=== PATIENT | male | born 1950 | race Caucasian/White ===

== ENCOUNTER → 2017-03-28 | Outpatient (CLI) | payer SELFPAY | LOC: M OUTALCOH 10:34 | PROVIDERS: ATTEND Psychiatry & Neurology Psychiatry | DX: F10.20 Alcohol dependence, uncomplicated (principal) ==

== ENCOUNTER 2017-04-05 13:54 | Outpatient (RCR) | payer SELFPAY | END 2017-04-21 | LOC: M OUTALCOH 13:54 | PROVIDERS: ATTEND Psychiatry & Neurology Psychiatry | DX: F12.10 Cannabis abuse, uncomplicated (principal); F10.10 Alcohol abuse, uncomplicated ==

== ENCOUNTER 2019-04-01 15:23 | Emergency (ER) | payer OTHER, SELFPAY ==
[~2019-04-01] VITALS: Ht 180.3 cm; Wt 72.7 kg
--- NOTE | 2019-04-01 18:21 | REP ---
REASON: Pain after trauma. PRIORS: None. The bones are demineralized. Mild degenerative changes are seen throughout the foot. There is no evidence of an acute fracture. IMPRESSION:Chronic changes. Electronically Signed by Marcelo Costa DO 04/02/2019 11:19 A
[2019-04-01] MEDS ORDERED: HEAL1TAB PO (21:35)
[2019-04-01] MEDS ORDERED: ATOR1TAB19 PO (21:35)
[2019-04-01] MEDS ORDERED: ONE-TAB PO (21:35)
[2019-04-01] MEDS ORDERED: ATEN25TA PO (21:35)
[2019-04-01] MEDS ORDERED: ASPI81TA85 PO (21:35)
[2019-04-01] MEDS ORDERED: NAPR-885 PO (21:35)
[2019-04-01] MEDS ORDERED: NIFE30TA50 PO (21:35)
[2019-04-01 21:44] VITALS: BP 145/65
--- NOTE | 2019-04-02 08:42 | REP ---
Right ankle series: Four views. History: Right ankle swelling. Findings: There is mild diffuse osteopenia. There is diffuse medial lateral and anterior soft tissue swelling. There is soft tissue swelling obscuring the borders of the Achilles tendon as well. Some vascular calcification is noted. Ankle mortise is intact. No fracture is visible. Impression: Diffuse soft tissue swelling. No fracture seen. Question Achilles tendon injury. Clinical correlation suggested. Vascular calcification is seen. Diffuse osteopenia. Electronically Signed by Romeo Jaramillo MD 04/02/2019 09:45 A
== END 2019-04-01 21:51 | disposition home or self-care (01) ==
LOC: M ED 15:23
DX: M25.472 Effusion, left ankle (principal); M19.072 Primary osteoarthritis, left ankle and foot; I10 Essential (primary) hypertension; Z79.899 Other long term (current) drug therapy; Z79.82 Long term (current) use of aspirin; Z87.891 Personal history of nicotine dependence

== ENCOUNTER 2019-05-22 07:39 | Day surgery (SDC) | payer OTHER ==
[~2019-05-22] VITALS: Ht 179.1 cm; Wt 66.9 kg
[~2019-05-22 07:39] MED LIST: ALBU8.5H IH; ASPI81TA85 PO; ATEN25TA PO; ATOR1TAB19 PO; CALC1TAB26 PO; CYAN100050 PO; FOLI800C PO; HEAL1TAB PO; NAPR-885 PO; NIFE30TA50 PO; NS 1,000 ML IV ONE; ONE-TAB PO; VITA50TA43 PO
[2019-05-22] MEDS ORDERED: PROPOFOL 200 MG/20 ML VIAL As Ordered ONE (07:53)
[2019-05-22] MEDS ORDERED: LIDOCAINE 2% INJ 100 MG/5 ML SDV (FOR ANES.) As Ordered ONE ×2 (07:53→07:54)
--- NOTE | 2019-05-22 08:50 | ROOR ---
Patient Name: Mauro Hagen Procedure Date: 05/22/2019 8:24 AM Date of : 1950 Age: 68 Room: [facility] Gender: Male Note Status: Finalized Procedure: Total Colonoscopy to Cecum + Cold Snare Polypectomy + Hemoclips Indications: Screening in patient at increased risk: Colorectal cancer in brother 60 or older Providers: Flo Cid MD Referring MD: Laurent Martinez Md Requesting Provider: Medicines: Monitored Anesthesia Care Complications: No immediate complications. Procedure: Pre-Anesthesia Assessment: - The heart rate, respiratory rate, oxygen saturations, blood pressure, adequacy of pulmonary ventilation, and response to care were monitored throughout the procedure. The Colonoscope was introduced through the anus and advanced to the cecum, identified by appendiceal orifice and ileocecal valve. The colonoscopy was performed without difficulty. The patient tolerated the procedure well. The quality of the bowel preparation was excellent. Findings: The perianal and digital rectal examinations were normal. Non-bleeding internal hemorrhoids were found during retroflexion. The hemorrhoids were small and Grade I (internal hemorrhoids that do not prolapse). A small polyp was found in the rectum. The polyp was sessile. The polyp was removed with a cold snare. Resection and retrieval were complete. To prevent bleeding after the polypectomy, one hemostatic clip was successfully placed (MR conditional). There was no bleeding at the end of the procedure. The exam was otherwise without abnormality on direct and retroflexion views. Scattered small-mouthed diverticula were found in the recto-sigmoid colon, sigmoid colon and descending colon. Impression: - Non-bleeding internal hemorrhoids. - One small polyp in the rectum, removed with a cold snare. Resected and retrieved. Clip (MR conditional) was placed. - The examination was otherwise normal on direct and retroflexion views. - Diverticulosis in the recto-sigmoid colon, in the sigmoid colon and in the descending colon. - The exam was otherwise normal to the cecum. Recommendation: - Patient has a contact number available for emergencies. The signs and symptoms of potential delayed complications were discussed with the patient. Return to normal activities tomorrow. Written discharge instructions were provided to the patient. - High fiber diet. - Discharge patient to home. - Continue present medications. - Await pathology results. - Telephone GI clinic for pathology results in 1 week. - Repeat colonoscopy in 5 years for surveillance based on pathology results. - Return to referring physician. - The findings and recommendations were discussed with the patient's family. Flo Cid MD Flo Cid MD 05/22/2019 8:50:19 AM Electronically signed by Flo Cid MD Number of Addenda: 0 Note Initiated On: 05/22/2019 8:24 AM Estimated Blood Loss: Estimated blood loss: none.
[2019-05-22 09:21] VITALS: BP 180/82
== END 2019-05-22 09:22 | disposition home or self-care (01) ==
LOC: M OPP 07:39
PROVIDERS: ATTEND Internal Medicine Gastroenterology
DX: Z12.11 Encounter for screening for malignant neoplasm of colon (principal); Z80.0 Family history of malignant neoplasm of digestive organs; K64.0 First degree hemorrhoids; K62.1 Rectal polyp; K57.30 Diverticulosis of large intestine without perforation or abscess without bleeding; I25.10 Atherosclerotic heart disease of native coronary artery without angina pectoris; I25.2 Old myocardial infarction; I10 Essential (primary) hypertension; E78.5 Hyperlipidemia, unspecified; M19.90 Unspecified osteoarthritis, unspecified site; J44.9 Chronic obstructive pulmonary disease, unspecified; Z87.891 Personal history of nicotine dependence; F12.10 Cannabis abuse, uncomplicated; Z88.1 Allergy status to other antibiotic agents; Z79.82 Long term (current) use of aspirin; Z79.899 Other long term (current) drug therapy

== ENCOUNTER 2024-11-20 18:15 | Inpatient (IN) | payer OTHER ==
[~2024-11-20] VITALS: Ht 180.3 cm; Wt 70.5 kg
[~2024-11-20 18:15] MED LIST changes: -ASPI81TA85 PO; +ASPI81TA86 PO; +CYAN-1 PO; -CYAN100050 PO; +NIFE-3 PO; -NIFE30TA50 PO; -NS 1,000 ML IV ONE
[2024-11-20 19:07] LABS: BASO # 0.1 10^3/uL (0.0-0.2); BASO % 0.7 % (0.0-1.0); EOS # 0.1 10^3/uL (0.0-0.5); HEMATOCRIT 35.7 % (42.0-52.0); HEMOGLOBIN 12.3 g/dl (13.5-17.5); LYMPH % 42.6 % (24.0-44.0); MEAN CORPUSCULAR HEMOGLOBIN 29.1 pg (27.0-33.0); MEAN CORPUSCULAR HGB CONC 34.5 g/dl (32.0-36.5); MEAN CORPUSCULAR VOLUME 84.4 fl (80.0-96.0); MONO # 1.1 10^3/uL (0.0-0.8); NEUTROPHILS # 2.9 10^3/uL (1.5-8.5); NEUTROPHILS % 40.6 % (36.0-66.0); PLATELET COUNT, AUTOMATED 322 10^3/uL (150-450); RED BLOOD COUNT 4.23 10^6/uL (4.30-6.10)
[2024-11-20 19:13] LABS: BLOOD UREA NITROGEN 8 MG/DL (9-23); CALCIUM LEVEL 8.4 MG/DL (8.3-10.6); CARBON DIOXIDE LEVEL 22 MMOL/L (20-31); CHLORIDE LEVEL 92 MMOL/L (98-107); GLOMERULAR FILTRATION RATE > 60.0 (>42); GLUCOSE, FASTING 83 MG/DL (74-106); POTASSIUM SERUM 4.1 MMOL/L (3.5-5.1); SODIUM LEVEL 130 MMOL/L (136-145)
[2024-11-20 19:19] LABS: INR 0.91; PARTIAL THROMBOPLASTIN TIME 37.6 SECONDS (24.8-34.2); PROTHROMBIN TIME 12.6 SECONDS (12.5-14.5)
[2024-11-20] MEDS: MORPHINE 4 MG/ML 1ML VIAL IV ONE ×3 (19:37→21:10)
[2024-11-20] MEDS: THIAMINE 100 MG TAB PO SCH (21:00)
[2024-11-20] MEDS: ONDANSETRON 4MG 2ML VIAL IV ONE (22:26)
[2024-11-20] MEDS ORDERED: MOM 30ML SUSPENSION UDC PO PRN (23:10)
[2024-11-20] MEDS ORDERED: LORazepam 2 MG TAB PO PRN (23:25)
[2024-11-21] MEDS ORDERED: ASPI81TA26 PO (00:06)
[2024-11-21] MEDS ORDERED: FAMO40TA3 PO (00:06)
[2024-11-21] MEDS ORDERED: XALA0.007 OU (00:06)
[2024-11-21] MEDS ORDERED: THERTAB52 PO (00:06)
[2024-11-21] MEDS ORDERED: VITA100T29 PO (00:06)
[2024-11-21] MEDS ORDERED: CALCCAP PO (00:06)
[2024-11-21] MEDS ORDERED: ATOR40TA75 PO (00:06)
[2024-11-21] MEDS ORDERED: HOME MED LIST COMPLETE! XX SCH (00:10)
[2024-11-21 00:19] VITALS: BP 156/73; TEMP 97.2; O2SAT 93
[2024-11-21 00:21] VITALS: BP 156/73
[2024-11-21] MEDS: NS (Normal Saline) 0.9% 1,000 ML IV SCH (00:26)
[2024-11-21] MEDS: PROMETHAZINE 25MG/ML 1ML VIAL IV PRN (00:38)
[2024-11-21] MEDS ORDERED: VENTAER INH (03:10)
[2024-11-21] MEDS ORDERED: OMEP-406 PO (03:10)
[2024-11-21] MEDS ORDERED: ATOR80TA59 PO (03:10)
[2024-11-21] MEDS: MORPHINE 2 MG/ML 1ML VIAL IV PRN (04:14)
[2024-11-21 04:22] VITALS: BP 156/74; TEMP 97.5; O2SAT 92
[2024-11-21] MEDS: METHOCARBAMOL 1,000 MG/10 ML VIAL IV ONE (04:54)
[2024-11-21] MEDS: ACETAMINOPHEN *IV* 1,000 MG in IV 1 EA IV ONE (05:02)
[2024-11-21] MEDS: HEPARIN SOD (PORCINE) 5000UNITS/ML 1ML VIAL/SYRINGE SC SCH (05:11)
[2024-11-21] MEDS ORDERED: NALOXONE INJ 0.4MG/1ML VIAL IV PRN (05:15)
[2024-11-21] MEDS: HYDROMORPHONE HCL 0.5 MG/ 0.5 ML SYRINGE IV ONE (05:25)
[2024-11-21 06:11] LABS: HEMATOCRIT 33.9 % (42.0-52.0); HEMOGLOBIN 11.4 g/dl (13.5-17.5); MEAN CORPUSCULAR HEMOGLOBIN 28.8 pg (27.0-33.0); MEAN CORPUSCULAR HGB CONC 33.6 g/dl (32.0-36.5); MEAN CORPUSCULAR VOLUME 85.6 fl (80.0-96.0); PLATELET COUNT, AUTOMATED 304 10^3/uL (150-450); RED BLOOD COUNT 3.96 10^6/uL (4.30-6.10)
[2024-11-21 06:41] LABS: ALBUMIN 3.3 G/DL (3.2-5.2); ALKALINE PHOSPHATASE 106 U/L (40-129); ALT/SGPT 23 U/L (7.0-40); AST/SGOT 39 U/L (<34); BILIRUBIN,TOTAL 0.4 MG/DL (0.3-1.2); BLOOD UREA NITROGEN 7 MG/DL (9-23); CALCIUM LEVEL 8.2 MG/DL (8.3-10.6); CARBON DIOXIDE LEVEL 25 MMOL/L (20-31); CHLORIDE LEVEL 94 MMOL/L (98-107); CREATININE FOR GFR 0.62 MG/DL (0.70-1.30); GLOMERULAR FILTRATION RATE > 60.0 (>42); GLUCOSE, FASTING 90 MG/DL (74-106); POTASSIUM SERUM 4.2 MMOL/L (3.5-5.1); SODIUM LEVEL 129 MMOL/L (136-145)
[2024-11-21] MEDS: DOCUSATE SODIUM 100MG CAPSULE PO SCH (09:00)
[2024-11-21] MEDS: NIFEdipine 30MG XL TAB PO SCH (10:12)
[2024-11-21] MEDS: ATORVASTATIN 20 MG TAB PO SCH (10:12)
[2024-11-21] MEDS: ASPIRIN 81MG ENTERIC TABLET PO SCH (10:12)
[2024-11-21] MEDS: MULTIVITAMINS/MINERALS THERAP 1 TAB PO SCH (10:13)
[2024-11-21] MEDS: atenoloL 25 MG TAB PO SCH (10:13)
[2024-11-21] MEDS: FOLIC ACID 1MG TAB PO SCH (10:13)
[2024-11-21 12:00] VITALS: BP 128/63; TEMP 97.3; O2SAT 92
[2024-11-21] MEDS: ALBUTEROL 90 MCG/ACT 8GM HFA INHALER INH PRN (16:55)
[2024-11-21 19:51] VITALS: BP 155/75; TEMP 98.8; O2SAT 88
[2024-11-21 20:00] VITALS: BP 155/75
[2024-11-21] MEDS: FAMOTIDINE 20 MG TAB PO SCH (20:35)
[2024-11-21] MEDS: SODIUM BICARBONATE 325 MG TAB PO SCH (20:35)
[2024-11-22 04:41] VITALS: BP 121/86; TEMP 97.5; O2SAT 86
[2024-11-22 06:54] LABS: BASO % 0.1 % (0.0-1.0); EOS % 0.4 % (0.0-3.0); HEMATOCRIT 33.6 % (42.0-52.0); HEMOGLOBIN 11.4 g/dl (13.5-17.5); LYMPH # 1.6 10^3/uL (1.5-5.0); LYMPH % 22.9 % (24.0-44.0); MEAN CORPUSCULAR HEMOGLOBIN 28.9 pg (27.0-33.0); MEAN CORPUSCULAR HGB CONC 33.9 g/dl (32.0-36.5); MEAN CORPUSCULAR VOLUME 85.1 fl (80.0-96.0); MONO # 0.9 10^3/uL (0.0-0.8); MONO % 13.6 % (2.0-8.0); NEUTROPHILS # 4.3 10^3/uL (1.5-8.5); NEUTROPHILS % 62.6 % (36.0-66.0); PLATELET COUNT, AUTOMATED 296 10^3/uL (150-450); RED BLOOD COUNT 3.95 10^6/uL (4.30-6.10); WHITE BLOOD COUNT 6.9 10^3/uL (4.0-10.0)
[2024-11-22 07:15] LABS: BLOOD UREA NITROGEN 8 MG/DL (9-23); CALCIUM LEVEL 7.8 MG/DL (8.3-10.6); CARBON DIOXIDE LEVEL 26 MMOL/L (20-31); CHLORIDE LEVEL 93 MMOL/L (98-107); CREATININE FOR GFR 0.62 MG/DL (0.70-1.30); GLOMERULAR FILTRATION RATE > 60.0 (>42); GLUCOSE, FASTING 91 MG/DL (74-106); MAGNESIUM LEVEL 1.6 MG/DL (1.8-2.4); POTASSIUM SERUM 3.9 MMOL/L (3.5-5.1); SODIUM LEVEL 130 MMOL/L (136-145)
[2024-11-22] MEDS ORDERED: BISACODYL 10MG SUPP PR PRN (07:50)
[2024-11-22] MEDS: SIMETHICONE 80MG CHEW TAB PO SCH (10:19)
[2024-11-22] MEDS: SENOKOT S TAB PO SCH (10:20)
[2024-11-22] MEDS: OMEPRAZOLE 20MG CAP PO SCH (10:21)
[2024-11-22 12:36] VITALS: BP 165/82; TEMP 98.2; O2SAT 92
[2024-11-22] MEDS: ACETAMINOPHEN 325 MG TAB PO PRN (12:58)
[2024-11-22] MEDS: MAG SULF 1GM/100ML (MAG RUN) 1 GM in IV 1 EA IV SCH (15:49)
[2024-11-22 20:00] VITALS: BP 133/68; TEMP 98.1; O2SAT 89
[2024-11-22 21:11] LABS: BASO % 0.3 % (0.0-1.0); EOS # 0.1 10^3/uL (0.0-0.5); EOS % 0.8 % (0.0-3.0); HEMATOCRIT 35.2 % (42.0-52.0); HEMOGLOBIN 12.2 g/dl (13.5-17.5); LYMPH % 26.8 % (24.0-44.0); MEAN CORPUSCULAR HEMOGLOBIN 29.3 pg (27.0-33.0); MEAN CORPUSCULAR HGB CONC 34.7 g/dl (32.0-36.5); MEAN CORPUSCULAR VOLUME 84.4 fl (80.0-96.0); MONO # 1.1 10^3/uL (0.0-0.8); MONO % 14.5 % (2.0-8.0); NEUTROPHILS # 4.4 10^3/uL (1.5-8.5); NEUTROPHILS % 57.3 % (36.0-66.0); PLATELET COUNT, AUTOMATED 297 10^3/uL (150-450); RED BLOOD COUNT 4.17 10^6/uL (4.30-6.10); WHITE BLOOD COUNT 7.6 10^3/uL (4.0-10.0)
[2024-11-22 21:25] LABS: D-DIMER QUANT 1.45 ug/mL (<0.5); INR 0.95; PARTIAL THROMBOPLASTIN TIME 40.5 SECONDS (24.8-34.2)
[2024-11-22 21:30] VITALS: BP 144/88
[2024-11-22 21:34] LABS: ALKALINE PHOSPHATASE 95 U/L (40-129); ALT/SGPT 25 U/L (7.0-40); AST/SGOT 40 U/L (<34); BILIRUBIN,DIRECT 0.2 MG/DL (<0.4); BILIRUBIN,TOTAL 0.5 MG/DL (0.3-1.2); BLOOD UREA NITROGEN 8 MG/DL (9-23); CALCIUM LEVEL 8.4 MG/DL (8.3-10.6); CARBON DIOXIDE LEVEL 29 MMOL/L (20-31); CHLORIDE LEVEL 95 MMOL/L (98-107); CREATININE FOR GFR 0.58 MG/DL (0.70-1.30); GLOMERULAR FILTRATION RATE > 60.0 (>42); GLUCOSE, FASTING 111 MG/DL (74-106); POTASSIUM SERUM 3.6 MMOL/L (3.5-5.1); SODIUM LEVEL 130 MMOL/L (136-145); TOTAL PROTEIN 6.1 G/DL (5.7-8.2)
[2024-11-22] MEDS ORDERED: ISOVUE-370 76% 100ML VIAL As Ordered ONE (22:52)
[2024-11-22 23:34] LABS: LDH LACTATE DEHYDROGENASE 221 U/L (120-246)
[2024-11-22 23:35] LABS: C REACTIVE PROTEIN QUANTITATIV 8.62 MG/DL (<1.0)
[2024-11-22 23:38] LABS: FERRITIN 39.8 NG/ML (10.5-307.3)
[2024-11-22 23:42] LABS: PROCALCITONIN 0.09 ng/ml
[2024-11-23] MEDS: REMDESIVIR 200 MG in NS 250 ML IV ONE (01:03)
[2024-11-23] MEDS: IPRATROPIUM 0.5MG/ALBUTEROL 2.5MG INH SOL UD 3ML (DUONEB) NEB SCH (01:53)
[2024-11-23 04:00] VITALS: BP 127/63; TEMP 96.8; O2SAT 90
[2024-11-23 07:51] LABS: BLOOD UREA NITROGEN 8 MG/DL (9-23); CALCIUM LEVEL 7.8 MG/DL (8.3-10.6); CARBON DIOXIDE LEVEL 30 MMOL/L (20-31); CHLORIDE LEVEL 94 MMOL/L (98-107); CREATININE FOR GFR 0.65 MG/DL (0.70-1.30); GLOMERULAR FILTRATION RATE > 60.0 (>42); GLUCOSE, FASTING 102 MG/DL (74-106); MAGNESIUM LEVEL 1.8 MG/DL (1.8-2.4); POTASSIUM SERUM 3.4 MMOL/L (3.5-5.1); SODIUM LEVEL 133 MMOL/L (136-145)
[2024-11-23 09:30] VITALS: BP 150/80
[2024-11-23] MEDS ORDERED: fentaNYL 100 MCG/2 ML INJECTION IV PRN (09:50)
[2024-11-23] MEDS ORDERED: MIDAZOLAM INJ 2MG/2ML VIAL IV PRN (09:50)
[2024-11-23] MEDS: ROPIvacaine 0.5% 30ML VIAL PN ONE (10:48)
[2024-11-23] MEDS: dexAMETHasone 10MG/1ML VIAL PRES.FREE PN ONE (10:48)
[2024-11-23 12:10] VITALS: BP 130/62; TEMP 97.9; O2SAT 90
[2024-11-23 16:00] VITALS: BP 130/62
[2024-11-23] MEDS: POTASSIUM CHLORIDE 10MEQ SR TABLET PO ONE (17:41)
[2024-11-23 19:55] VITALS: BP_SYST 145; BP_SYST 45; BP_DIAS 87; TEMP 97.4; O2SAT 91
[2024-11-23] MEDS: REMDESIVIR 100 MG in NS 100 ML IV SCH (21:26)
[2024-11-23 22:57] VITALS: BP 145/87
[2024-11-24] VITALS (28 sets, daily range): BP systolic 119–201; BP diastolic 58–86; TEMP 97.5–99.2; O2SAT 90–97
[2024-11-24 06:25] LABS: BLOOD UREA NITROGEN 12 MG/DL (9-23); CALCIUM LEVEL 8.3 MG/DL (8.3-10.6); CARBON DIOXIDE LEVEL 26 MMOL/L (20-31); CHLORIDE LEVEL 100 MMOL/L (98-107); CREATININE FOR GFR 0.58 MG/DL (0.70-1.30); GLOMERULAR FILTRATION RATE > 60.0 (>42); GLUCOSE, FASTING 128 MG/DL (74-106); MAGNESIUM LEVEL 1.8 MG/DL (1.8-2.4); SODIUM LEVEL 136 MMOL/L (136-145)
[2024-11-24] MEDS: LORazepam 2 MG TAB PO PRN (06:58)
[2024-11-24] MEDS: DOXYCYCLINE HYCLATE 100MG TABLET PO SCH (09:34)
[2024-11-24] MEDS: guaiFENesin ER TABLET 600 MG TAB PO SCH (09:34)
[2024-11-24] MEDS: FLUTICASONE PROP 0.05% NASAL SPRAY 16 GM (FLONASE) NARES SCH (09:35)
[2024-11-24] MEDS: LORazepam 2 MG/ML 1ML VIAL IV STA (10:08)
[2024-11-24] MEDS: OXAZEPAM 10MG CAP PO SCH (12:58)
[2024-11-24] MEDS: OLANZapine INTRAMUSCULAR 10MG VIAL IM ONE ×2 (15:32→16:31)
[2024-11-24] MEDS ORDERED: dexmedeTOMIDine (4MCG/ML)200MCG/50ML BTL (PRECEDEX) As Ordered ONE (17:17)
[2024-11-24] MEDS: dexmedeTOMidine 200 MCG in IV 1 EA IV SCH (17:27)
[2024-11-24] MEDS: diazePAM 10MG/2ML SYRINGE IV ONE (17:41)
[2024-11-24] MEDS: diazePAM 10MG/2ML SYRINGE IV STA (19:22)
[2024-11-24] MEDS: MULTIVITAMIN -ADULT INJECTION 10 ML, THIAMINE INJection 100 MG, FOLIC ACID 1 MG in NS (... IV ONE (21:09)
[2024-11-24] MEDS: DOXYCYCLINE HYCLATE 100 MG in DEXTROSE 5% (D5W) MINI-BAG PLU 100 ML IV SCH (21:53)
[2024-11-25] VITALS (43 sets, daily range): BP systolic 115–183; BP diastolic 58–86; TEMP 97–99.2; O2SAT 87–96
[2024-11-25] MEDS: diazePAM 10MG/2ML SYRINGE IV SCH ×2 (01:09→13:13)
[2024-11-25] MEDS: LORazepam 2 MG/ML 1ML VIAL IV PRN (04:07)
[2024-11-25 05:11] LABS: BLOOD UREA NITROGEN 14 MG/DL (9-23); CALCIUM LEVEL 8.1 MG/DL (8.3-10.6); CARBON DIOXIDE LEVEL 29 MMOL/L (20-31); CHLORIDE LEVEL 103 MMOL/L (98-107); CREATININE FOR GFR 0.53 MG/DL (0.70-1.30); GLOMERULAR FILTRATION RATE > 60.0 (>42); GLUCOSE, FASTING 114 MG/DL (74-106); MAGNESIUM LEVEL 1.9 MG/DL (1.8-2.4); PHOSPHORUS LEVEL 4.8 MG/DL (2.4-5.1); POTASSIUM SERUM 4.4 MMOL/L (3.5-5.1); SODIUM LEVEL 140 MMOL/L (136-145)
[2024-11-25] MEDS: ENOXAPARIN 40MG/0.4ML SYRINGE (J1650 PER 10MG) SC SCH (09:20)
[2024-11-25] MEDS: COMBIVENT RESPIMAT 100-20MCG INHALER 4GM INH SCH (09:35)
[2024-11-25] MEDS ORDERED: MULTIVITAMIN -ADULT INJECTION 10 ML, THIAMINE INJection 100 MG, FOLIC ACID 1 MG in NS (... IV ONE (12:00)
[2024-11-25] MEDS: CEFEPIME HCL 2 GM in DEXTROSE 5% (D5W) ADV/MINI-BAG 50 ML IV SCH (17:31)
[2024-11-25] MEDS: DOXYCYCLINE HYCLATE 100MG TABLET PO SCH (20:47)
[2024-11-26] VITALS (16 sets, daily range): BP systolic 132–178; BP diastolic 67–94; TEMP 97.6–98.8; O2SAT 89–97
[2024-11-26 05:19] LABS: BLOOD UREA NITROGEN 25 MG/DL (9-23); CARBON DIOXIDE LEVEL 28 MMOL/L (20-31); CHLORIDE LEVEL 101 MMOL/L (98-107); CREATININE FOR GFR 0.68 MG/DL (0.70-1.30); GLOMERULAR FILTRATION RATE > 60.0 (>42); GLUCOSE, FASTING 89 MG/DL (74-106); MAGNESIUM LEVEL 1.6 MG/DL (1.8-2.4); POTASSIUM SERUM 3.9 MMOL/L (3.5-5.1); SODIUM LEVEL 137 MMOL/L (136-145)
[2024-11-26] MEDS: LIDOCAINE 5% (LIDODERM) PATCH TD STA (08:58)
[2024-11-26] MEDS: MAG SULF 1GM/100ML (MAG RUN) 1 GM in IV 1 EA IV SCH (10:36)
[2024-11-26] MEDS: **hydrALAZINE** 10 MG TAB PO SCH (15:45)
[2024-11-26] MEDS: RAMELTEON 8 MG TAB (ROZEREM) PO SCH (20:28)
[2024-11-27] MEDS: LEVALBUTEROL 1.25MG 0.5ML CONCENTRATE NEB INH PRN (01:36)
[2024-11-27 03:13] LABS: MAGNESIUM LEVEL 1.8 MG/DL (1.8-2.4); POTASSIUM SERUM 3.8 MMOL/L (3.5-5.1)
[2024-11-27 03:53] VITALS: BP 109/77; TEMP 97.7; O2SAT 96
[2024-11-27 06:00] VITALS: BP 109/77
[2024-11-27 06:50] LABS: BLOOD UREA NITROGEN 20 MG/DL (9-23); CARBON DIOXIDE LEVEL 27 MMOL/L (20-31); CHLORIDE LEVEL 102 MMOL/L (98-107); CREATININE FOR GFR 0.61 MG/DL (0.70-1.30); GLOMERULAR FILTRATION RATE > 60.0 (>42); GLUCOSE, FASTING 107 MG/DL (74-106); MAGNESIUM LEVEL 1.8 MG/DL (1.8-2.4); POTASSIUM SERUM 3.6 MMOL/L (3.5-5.1); SODIUM LEVEL 139 MMOL/L (136-145)
[2024-11-27 10:00] VITALS: BP 111/77; O2SAT 92
[2024-11-27] MEDS: LIDOCAINE 5% (LIDODERM) PATCH TD SCH (10:11)
[2024-11-27 12:00] VITALS: BP 131/76; TEMP 98.4; O2SAT 93
[2024-11-27 21:36] VITALS: BP 138/84; TEMP 98.1; O2SAT 95
[2024-11-27 22:00] VITALS: O2SAT 94
[2024-11-28] VITALS (9 sets, daily range): BP systolic 134–161; BP diastolic 64–84; TEMP 97.9–98.6; O2SAT 88–95
[2024-11-28 06:41] LABS: BASO % 0.2 % (0.0-1.0); EOS # 0.1 10^3/uL (0.0-0.5); HEMATOCRIT 32.8 % (42.0-52.0); HEMOGLOBIN 11.1 g/dl (13.5-17.5); LYMPH # 1.9 10^3/uL (1.5-5.0); LYMPH % 22.1 % (24.0-44.0); MEAN CORPUSCULAR HEMOGLOBIN 28.8 pg (27.0-33.0); MEAN CORPUSCULAR HGB CONC 33.8 g/dl (32.0-36.5); MEAN CORPUSCULAR VOLUME 85.2 fl (80.0-96.0); MONO # 1.3 10^3/uL (0.0-0.8); MONO % 14.5 % (2.0-8.0); NEUTROPHILS # 5.3 10^3/uL (1.5-8.5); NEUTROPHILS % 61.7 % (36.0-66.0); PLATELET COUNT, AUTOMATED 425 10^3/uL (150-450); RED BLOOD COUNT 3.85 10^6/uL (4.30-6.10); WHITE BLOOD COUNT 8.6 10^3/uL (4.0-10.0)
[2024-11-28 06:50] LABS: BLOOD UREA NITROGEN 20 MG/DL (9-23); CALCIUM LEVEL 8.1 MG/DL (8.3-10.6); CARBON DIOXIDE LEVEL 27 MMOL/L (20-31); CHLORIDE LEVEL 103 MMOL/L (98-107); CREATININE FOR GFR 0.62 MG/DL (0.70-1.30); GLOMERULAR FILTRATION RATE > 60.0 (>42); GLUCOSE, FASTING 104 MG/DL (74-106); MAGNESIUM LEVEL 1.9 MG/DL (1.8-2.4); POTASSIUM SERUM 4.3 MMOL/L (3.5-5.1); SODIUM LEVEL 139 MMOL/L (136-145)
[2024-11-28] MEDS: LR 1,000 ML IV SCH (08:08)
[2024-11-28] MEDS: ROPIvacaine 0.5% 30ML VIAL PN ONE (17:45)
[2024-11-28] MEDS: MIDAZOLAM INJ 2MG/2ML VIAL IV PRN (17:51)
[2024-11-28] MEDS: fentaNYL 100 MCG/2 ML INJECTION IV PRN (17:51)
[2024-11-28] MEDS: EPINEPHrine INJ 1 MG/ML 1ML AMP PN ONE (17:54)
[2024-11-28] MEDS: dexAMETHasone 10MG/1ML VIAL PRES.FREE PN ONE (17:54)
[2024-11-28] MEDS: LIDOCAINE 1% SDV 5ML VIAL PN ONE (17:54)
[2024-11-28] MEDS: ceFAZolin 2 GM/D5W 50 ML IV BAG As Ordered ONE (18:47)
[2024-11-28] MEDS: NS IV ONE (18:56)
[2024-11-28] MEDS: GENTAMICIN IV ONE (18:56)
[2024-11-28] MEDS: TRANEXAMIC ACID 100 MG/ML 10ML VIAL As Ordered ONE (19:31)
[2024-11-28] MEDS ORDERED: ONDANSETRON 4MG 2ML VIAL As Ordered ONE (19:45)
[2024-11-28] MEDS ORDERED: LIDOCAINE 2% 100MG/5ML SDV (FOR ANES.) As Ordered ONE (19:45)
[2024-11-28] MEDS ORDERED: propofoL 200 MG/20 ML VIAL As Ordered ONE (19:45)
[2024-11-28] MEDS ORDERED: PHENYLephrine 500MCG 5ML (100MCG/ML) SYRINGE As Ordered ONE (19:45)
[2024-11-28] MEDS ORDERED: fentaNYL 100 MCG/2 ML INJECTION As Ordered ONE (19:45)
[2024-11-28] MEDS ORDERED: ROCURONIUM BROMIDE 50MG/5ML VIAL As Ordered ONE (19:45)
[2024-11-28] MEDS ORDERED: SUGAMMADEX SODIUM 500 MG/5 ML VIAL (BRIDION) As Ordered ONE (19:45)
[2024-11-28] MEDS ORDERED: ACETAMINOPHEN 1000MG/100ML IV BAG As Ordered ONE (19:45)
[2024-11-28] MEDS: VANCOMYCIN 1000MG/20ML VIAL As Ordered ONE (20:00)
[2024-11-28] MEDS ORDERED: MIDAZOLAM INJ 2MG/2ML VIAL As Ordered ONE (20:12)
[2024-11-28] MEDS ORDERED: GLYCOPYRROLATE INJ 0.2 MG/ML 2 ML VIAL As Ordered ONE (20:41)
[2024-11-28] MEDS: diazePAM 10MG/2ML SYRINGE IV SCH (21:00)
[2024-11-28] MEDS ORDERED: ePHEDrine SULFATE 25 MG/5 ML(5MG/ML) SYRINGE As Ordered ONE (22:56)
[2024-11-29] VITALS (13 sets, daily range): BP systolic 116–147; BP diastolic 63–77; TEMP 97.3–98.2; O2SAT 88–96
[2024-11-29] MEDS ORDERED: HYDROMORPHONE HCL 0.5 MG/ 0.5 ML SYRINGE IV PRN (00:40)
[2024-11-29] MEDS ORDERED: oxyCODONE 5MG TAB PO PRN (00:40)
[2024-11-29] MEDS ORDERED: ONDANSETRON 4MG 2ML VIAL IV PRN (00:40)
[2024-11-29] MEDS ORDERED: fentaNYL 100 MCG/2 ML INJECTION IV PRN (00:40)
[2024-11-29 06:23] LABS: BASO % 0.1 % (0.0-1.0); HEMATOCRIT 33.6 % (42.0-52.0); LYMPH # 1.3 10^3/uL (1.5-5.0); LYMPH % 8.6 % (24.0-44.0); MEAN CORPUSCULAR HEMOGLOBIN 28.1 pg (27.0-33.0); MEAN CORPUSCULAR HGB CONC 32.7 g/dl (32.0-36.5); MEAN CORPUSCULAR VOLUME 85.9 fl (80.0-96.0); MONO # 1.2 10^3/uL (0.0-0.8); NEUTROPHILS # 12.3 10^3/uL (1.5-8.5); NEUTROPHILS % 82.7 % (36.0-66.0); PLATELET COUNT, AUTOMATED 472 10^3/uL (150-450); RED BLOOD COUNT 3.91 10^6/uL (4.30-6.10); WHITE BLOOD COUNT 14.9 10^3/uL (4.0-10.0)
[2024-11-29 06:53] LABS: BLOOD UREA NITROGEN 18 MG/DL (9-23); CALCIUM LEVEL 7.8 MG/DL (8.3-10.6); CARBON DIOXIDE LEVEL 29 MMOL/L (20-31); CHLORIDE LEVEL 98 MMOL/L (98-107); CREATININE FOR GFR 0.56 MG/DL (0.70-1.30); GLOMERULAR FILTRATION RATE > 60.0 (>42); GLUCOSE, FASTING 121 MG/DL (74-106); MAGNESIUM LEVEL 1.8 MG/DL (1.8-2.4); POTASSIUM SERUM 4.6 MMOL/L (3.5-5.1); SODIUM LEVEL 136 MMOL/L (136-145)
[2024-11-29] MEDS: predniSONE 20 MG TAB PO SCH (08:12)
[2024-11-29] MEDS: ENOXAPARIN 40MG/0.4ML SYRINGE (J1650 PER 10MG) SC SCH (08:13)
[2024-11-29] MEDS ORDERED: ATROPINE SULF 1MG/10ML SYRINGE IV PRN (10:00)
[2024-11-29] MEDS ORDERED: CALCIUM CHLORIDE 10% 1 GM/10 ML SYR IV STA (21:28)
[2024-11-29] MEDS: diazePAM 10MG/2ML SYRINGE IV SCH (21:35)
[2024-11-29] MEDS: CALCIUM CHLORIDE 10% 1 GM in D5W 100 ML IV ONE (23:32)
[2024-11-30] VITALS (7 sets, daily range): BP systolic 132–133; BP diastolic 65–72; TEMP 97.9–99; O2SAT 89–94
[2024-11-30 05:44] LABS: BASO % 0.1 % (0.0-1.0); EOS # 0.2 10^3/uL (0.0-0.5); EOS % 1.7 % (0.0-3.0); HEMATOCRIT 30.8 % (42.0-52.0); HEMOGLOBIN 10.4 g/dl (13.5-17.5); LYMPH # 2.3 10^3/uL (1.5-5.0); LYMPH % 20.3 % (24.0-44.0); MEAN CORPUSCULAR HEMOGLOBIN 29.1 pg (27.0-33.0); MEAN CORPUSCULAR HGB CONC 33.8 g/dl (32.0-36.5); MEAN CORPUSCULAR VOLUME 86.3 fl (80.0-96.0); MONO % 17.9 % (2.0-8.0); NEUTROPHILS # 6.7 10^3/uL (1.5-8.5); NEUTROPHILS % 59.4 % (36.0-66.0); PLATELET COUNT, AUTOMATED 456 10^3/uL (150-450); RED BLOOD COUNT 3.57 10^6/uL (4.30-6.10); WHITE BLOOD COUNT 11.3 10^3/uL (4.0-10.0)
[2024-11-30 06:12] LABS: ALBUMIN 2.6 G/DL (3.2-5.2); ALKALINE PHOSPHATASE 78 U/L (40-129); ALT/SGPT 27 U/L (7.0-40); AST/SGOT 25 U/L (<34); BILIRUBIN,TOTAL 0.5 MG/DL (0.3-1.2); BLOOD UREA NITROGEN 24 MG/DL (9-23); CALCIUM LEVEL 8.9 MG/DL (8.3-10.6); CARBON DIOXIDE LEVEL 30 MMOL/L (20-31); CHLORIDE LEVEL 100 MMOL/L (98-107); CREATININE FOR GFR 0.69 MG/DL (0.70-1.30); GLOMERULAR FILTRATION RATE > 60.0 (>42); GLUCOSE, FASTING 99 MG/DL (74-106); MAGNESIUM LEVEL 1.8 MG/DL (1.8-2.4); POTASSIUM SERUM 3.9 MMOL/L (3.5-5.1); SODIUM LEVEL 138 MMOL/L (136-145); TOTAL PROTEIN 5.3 G/DL (5.7-8.2)
[2024-11-30] MEDS ORDERED: OXAZEPAM 10MG CAP PO SCH (14:00)
[2024-11-30] MEDS: PERCOCET 5MG/325MG TAB PO PRN (15:43)
[2024-11-30] MEDS: **hydrALAZINE HCL** 25 MG TAB PO SCH (15:45)
[2024-11-30] MEDS: OXAZEPAM 10MG CAP PO SCH (18:16)
[2024-12-01 04:00] VITALS: BP 118/66; TEMP 98.1; O2SAT 92
[2024-12-01 08:12] LABS: BASO % 0.2 % (0.0-1.0); EOS # 0.3 10^3/uL (0.0-0.5); EOS % 3.6 % (0.0-3.0); HEMATOCRIT 31.9 % (42.0-52.0); HEMOGLOBIN 10.6 g/dl (13.5-17.5); LYMPH % 20.7 % (24.0-44.0); MEAN CORPUSCULAR HEMOGLOBIN 28.8 pg (27.0-33.0); MEAN CORPUSCULAR HGB CONC 33.2 g/dl (32.0-36.5); MEAN CORPUSCULAR VOLUME 86.7 fl (80.0-96.0); MONO # 1.4 10^3/uL (0.0-0.8); MONO % 15.1 % (2.0-8.0); NEUTROPHILS # 5.6 10^3/uL (1.5-8.5); NEUTROPHILS % 59.8 % (36.0-66.0); PLATELET COUNT, AUTOMATED 444 10^3/uL (150-450); RED BLOOD COUNT 3.68 10^6/uL (4.30-6.10); WHITE BLOOD COUNT 9.5 10^3/uL (4.0-10.0)
[2024-12-01] MEDS ORDERED: LEVO75TAB PO (09:45)
[2024-12-01] MEDS ORDERED: OXYC1TAB23 PO (09:45)
[2024-12-01] MEDS ORDERED: ASPI81TA26 PO (09:45)
[2024-12-01] MEDS ORDERED: HYDR25TA87 PO (09:45)
[2024-12-01] MEDS ORDERED: SENN-52 PO (09:45)
[2024-12-01] MEDS ORDERED: PRED10TA2 PO (09:45)
[2024-12-01 10:00] VITALS: O2SAT 92
[2024-12-01] MEDS: PERCOCET 5MG/325MG TAB PO PRN (10:01)
[2024-12-01 10:04] VITALS: BP 152/68
[2024-12-01 12:00] VITALS: BP 136/67; TEMP 97.5; O2SAT 91
[2024-12-01] MEDS ORDERED: LevoFLOXacin 750 MG TABLET PO SCH (18:00)
== END 2024-12-01 15:18 | disposition home health service (06) | DRG 492 ==
LOC: EDBD 18:15 → M ED 18:15 → M ED INP 23:08 → M MS5PR 11-21 00:03 → M PCU 11-24 10:30 → M ICU 11-24 17:15 → M MSPAV 11-26 22:35
PROVIDERS: ADMIT Family Medicine; ATTEND Internal Medicine
PROC: XW033E5 Introduction of Remdesivir Anti-infective into Peripheral Vein, Percutaneous Approach, New Technology Group 5 (ICD-10-PCS; 2024-11-22)
PROC: 0QSJ04Z Reposition Right Fibula with Internal Fixation Device, Open Approach (ICD-10-PCS; 2024-11-28)
PROC: 0QSG04Z Reposition Right Tibia with Internal Fixation Device, Open Approach (ICD-10-PCS; principal; 2024-11-28 17:00)
DX: S82.451A Displaced comminuted fracture of shaft of right fibula, initial encounter for closed fracture (principal); U07.1 COVID-19; J12.9 Viral pneumonia, unspecified; J44.1 Chronic obstructive pulmonary disease with (acute) exacerbation; F10.239 Alcohol dependence with withdrawal, unspecified; J44.0 Chronic obstructive pulmonary disease with (acute) lower respiratory infection; E87.1 Hypo-osmolality and hyponatremia; S82.851A Displaced trimalleolar fracture of right lower leg, initial encounter for closed fracture; S92.131A Displaced fracture of posterior process of right talus, initial encounter for closed fracture; I10 Essential (primary) hypertension; I25.10 Atherosclerotic heart disease of native coronary artery without angina pectoris; I25.2 Old myocardial infarction; J44.9 Chronic obstructive pulmonary disease, unspecified; W00.0XXA Fall on same level due to ice and snow, initial encounter; Y92.014 Private driveway to single-family (private) house as the place of occurrence of the external cause; Y93.89 Activity, other specified; M19.90 Unspecified osteoarthritis, unspecified site; Y99.8 Other external cause status; K59.00 Constipation, unspecified; E83.42 Hypomagnesemia; E78.5 Hyperlipidemia, unspecified; J43.9 Emphysema, unspecified; K21.9 Gastro-esophageal reflux disease without esophagitis; E87.6 Hypokalemia; E83.51 Hypocalcemia; Z79.82 Long term (current) use of aspirin; Z79.899 Other long term (current) drug therapy; Z88.8 Allergy status to other drugs, medicaments and biological substances

== ENCOUNTER → 2024-12-12 | Outpatient (CLI) | payer OTHER ==
[~2024-12-12] MED LIST changes: +ASPI81TA26 PO; +ATOR40TA75 PO; +ATOR80TA59 PO; +CALCCAP PO; +FAMO40TA3 PO; +HYDR25TA87 PO; +LEVO75TAB PO; +OMEP-406 PO; +OXYC1TAB23 PO; +PRED10TA2 PO; +SENN-52 PO; +THERTAB52 PO; +VENTAER INH; +VITA100T29 PO; +XALA0.007 OU
== END ==
LOC: M SOG 07:58
PROVIDERS: ATTEND Physician Assistant
DX: M25.571 Pain in right ankle and joints of right foot (principal)

== ENCOUNTER → 2025-01-09 | Outpatient (CLI) | payer OTHER | LOC: M RAD 10:27 | PROVIDERS: ATTEND Orthopaedic Surgery | DX: R60.9 Edema, unspecified (principal) ==

== ENCOUNTER → 2025-01-30 | Outpatient (CLI) | payer OTHER | LOC: M RAD 09:36 | PROVIDERS: ATTEND Orthopaedic Surgery | DX: M79.89 Other specified soft tissue disorders (principal) ==

== ENCOUNTER → 2025-01-31 | Outpatient (CLI) | payer OTHER | LOC: M SOG 15:20 | PROVIDERS: ATTEND Orthopaedic Surgery Hand Surgery | DX: S82.851A Displaced trimalleolar fracture of right lower leg, initial encounter for closed fracture (principal); Y93.9 Activity, unspecified; Y92.9 Unspecified place or not applicable ==

== ENCOUNTER 2025-02-15 01:07 | Emergency (ER) | payer OTHER ==
[~2025-02-15] VITALS: Ht 170.2 cm; Wt 70.9 kg
[2025-02-15 02:26] LABS: BASO % 0.4 % (0.0-1.0); EOS # 0.5 10^3/uL (0.0-0.5); EOS % 4.8 % (0.0-3.0); HEMATOCRIT 30.5 % (42.0-52.0); HEMOGLOBIN 9.8 g/dl (13.5-17.5); LYMPH % 19.6 % (24.0-44.0); MEAN CORPUSCULAR HEMOGLOBIN 26.4 pg (27.0-33.0); MEAN CORPUSCULAR HGB CONC 32.1 g/dl (32.0-36.5); MEAN CORPUSCULAR VOLUME 82.2 fl (80.0-96.0); MONO # 1.5 10^3/uL (0.0-0.8); MONO % 14.3 % (2.0-8.0); NEUTROPHILS # 6.3 10^3/uL (1.5-8.5); NEUTROPHILS % 60.6 % (36.0-66.0); PLATELET COUNT, AUTOMATED 482 10^3/uL (150-450); RED BLOOD COUNT 3.71 10^6/uL (4.30-6.10); WHITE BLOOD COUNT 10.4 10^3/uL (4.0-10.0)
[2025-02-15 02:30] VITALS: TEMP 98.1
[2025-02-15 02:44] LABS: INR 0.99; PARTIAL THROMBOPLASTIN TIME 40.4 SECONDS (24.8-34.2); PROTHROMBIN TIME 13.4 SECONDS (12.5-14.5)
[2025-02-15 02:50] LABS: ALBUMIN 2.4 G/DL (3.2-5.2); BILIRUBIN,TOTAL 0.2 MG/DL (0.3-1.2); CALCIUM LEVEL 8.3 MG/DL (8.3-10.6); CREATININE FOR GFR 1.27 MG/DL (0.70-1.30); GLOMERULAR FILTRATION RATE 58.9 (>42); POTASSIUM SERUM 4.6 MMOL/L (3.5-5.1); TOTAL PROTEIN 5.6 G/DL (5.7-8.2)
[2025-02-15] MEDS ORDERED: ISOVUE-370 76% 100ML VIAL As Ordered ONE (02:53)
[2025-02-15 05:00] VITALS: BP 121/61
[2025-02-15 05:22] VITALS: O2SAT 92
== END 2025-02-15 05:40 | disposition home or self-care (01) ==
LOC: M ED 01:07
DX: C79.2 Secondary malignant neoplasm of skin (principal); R58 Hemorrhage, not elsewhere classified; I25.119 Atherosclerotic heart disease of native coronary artery with unspecified angina pectoris; I10 Essential (primary) hypertension; J44.9 Chronic obstructive pulmonary disease, unspecified; Z88.1 Allergy status to other antibiotic agents; Z79.1 Long term (current) use of non-steroidal anti-inflammatories (NSAID); Z79.51 Long term (current) use of inhaled steroids; Z79.52 Long term (current) use of systemic steroids; Z79.810 Long term (current) use of selective estrogen receptor modulators (SERMs); Z79.899 Other long term (current) drug therapy
CPT/HCPCS: 36415; 75635; 80053; 85025; 85610; 85730; 86850; 86900; 86901; 99284; Q9967

== ENCOUNTER → 2025-02-24 | Outpatient (CLI) | payer OTHER | LOC: M PLARAD 09:02 | PROVIDERS: ATTEND Student in an Organized Health Care Education/Training Program | DX: C43.71 Malignant melanoma of right lower limb, including hip (principal) | CPT/HCPCS: 78816; A9552 ==

== ENCOUNTER → 2025-02-28 | Outpatient (CLI) | payer OTHER ==
[~2025-02-28] MED LIST changes: +ISOVUE-370 76% 100ML VIAL As Ordered ONE
== END ==
LOC: M RAD 10:47
PROVIDERS: ATTEND Internal Medicine Medical Oncology
DX: D03.8 Melanoma in situ of other sites (principal)
CPT/HCPCS: 70470; Q9967

== ENCOUNTER → 2025-03-13 | Outpatient (CLI) | payer OTHER ==
[~2025-03-13] MED LIST changes: -ISOVUE-370 76% 100ML VIAL As Ordered ONE
== END ==
LOC: M SOG 06:53
PROVIDERS: ATTEND Physician Assistant
DX: Z53.9 Procedure and treatment not carried out, unspecified reason (principal)

== ENCOUNTER 2025-03-18 11:17 | Outpatient (RCR) | payer OTHER ==
[2025-02-07 09:32] VITALS: BP 123/65; O2SAT 77
[2025-02-07 10:53] LABS: BASO # 0.1 10^3/uL (0.0-0.2); BASO % 0.5 % (0.0-1.0); EOS # 0.6 10^3/uL (0.0-0.5); EOS % 5.7 % (0.0-3.0); HEMATOCRIT 33.3 % (42.0-52.0); HEMOGLOBIN 10.8 g/dl (13.5-17.5); LYMPH # 2.3 10^3/uL (1.5-5.0); LYMPH % 21.1 % (24.0-44.0); MEAN CORPUSCULAR HEMOGLOBIN 26.9 pg (27.0-33.0); MEAN CORPUSCULAR HGB CONC 32.4 g/dl (32.0-36.5); MONO # 1.1 10^3/uL (0.0-0.8); MONO % 10.1 % (2.0-8.0); NEUTROPHILS # 6.8 10^3/uL (1.5-8.5); NEUTROPHILS % 62.3 % (36.0-66.0); PLATELET COUNT, AUTOMATED 494 10^3/uL (150-450); RED BLOOD COUNT 4.01 10^6/uL (4.30-6.10)
[2025-02-07 11:38] LABS: ALBUMIN 2.7 G/DL (3.2-5.2); ALKALINE PHOSPHATASE 130 U/L (40-129); ALT/SGPT 17 U/L (7.0-40); AST/SGOT 30 U/L (<34); BILIRUBIN,TOTAL 0.3 MG/DL (0.3-1.2); BLOOD UREA NITROGEN 19 MG/DL (9-23); CALCIUM LEVEL 8.8 MG/DL (8.3-10.6); CARBON DIOXIDE LEVEL 28 MMOL/L (20-31); CHLORIDE LEVEL 100 MMOL/L (98-107); CREATININE FOR GFR 0.95 MG/DL (0.70-1.30); GLOMERULAR FILTRATION RATE 83.5 (>42); GLUCOSE, FASTING 93 MG/DL (74-106); POTASSIUM SERUM 4.7 MMOL/L (3.5-5.1); SODIUM LEVEL 136 MMOL/L (136-145); TOTAL PROTEIN 5.8 G/DL (5.7-8.2)
[2025-02-07 11:42] LABS: FREE T4 1.13 NG/DL (0.89-1.76); THYROID STIMULATING HORMONE 1.721 uIU/ML (0.55-4.78)
[2025-02-07 14:54] LABS: IRON (FE) 22 UG/DL (65-175); PERCENT SATURATION 7.6 % (19.7-50.0); TOTAL IRON BINDING CAPACITY 289 UG/DL (250-425)
[2025-02-07 14:55] LABS: FERRITIN 49.1 NG/ML (10.5-307.3)
[2025-02-07 14:56] LABS: FOLATE > 24.0 NG/ML (>5.4)
[2025-02-07 15:00] LABS: VITAMIN B12 LEVEL > 2000 PG/ML (211-911)
[2025-02-13 13:26] LABS: BASO % 0.4 % (0.0-1.0); EOS # 0.3 10^3/uL (0.0-0.5); EOS % 2.6 % (0.0-3.0); HEMATOCRIT 30.6 % (42.0-52.0); LYMPH # 2.4 10^3/uL (1.5-5.0); LYMPH % 21.7 % (24.0-44.0); MEAN CORPUSCULAR HGB CONC 32.7 g/dl (32.0-36.5); MEAN CORPUSCULAR VOLUME 82.5 fl (80.0-96.0); MONO # 1.5 10^3/uL (0.0-0.8); MONO % 13.3 % (2.0-8.0); NEUTROPHILS # 6.8 10^3/uL (1.5-8.5); NEUTROPHILS % 61.7 % (36.0-66.0); PLATELET COUNT, AUTOMATED 477 10^3/uL (150-450); RED BLOOD COUNT 3.71 10^6/uL (4.30-6.10)
[2025-02-13 14:06] LABS: ALBUMIN 2.5 G/DL (3.2-5.2); BILIRUBIN,TOTAL 0.3 MG/DL (0.3-1.2); CALCIUM LEVEL 8.6 MG/DL (8.3-10.6); CREATININE FOR GFR 1.03 MG/DL (0.70-1.30); GLOMERULAR FILTRATION RATE 75.8 (>42); POTASSIUM SERUM 4.9 MMOL/L (3.5-5.1); TOTAL PROTEIN 5.7 G/DL (5.7-8.2)
[2025-02-13 14:10] LABS: FREE T4 1.14 NG/DL (0.89-1.76)
[2025-02-13 14:12] VITALS: BP 92/44; O2SAT 92
[2025-02-13 14:12] LABS: THYROID STIMULATING HORMONE 1.478 uIU/ML (0.55-4.78)
[2025-02-13 14:14] LABS: FREE T3 2.9 PG/ML (2.3-4.2)
[2025-02-17 09:30] VITALS: BP 106/52; O2SAT 93
[2025-03-07 11:20] LABS: BASO # 0.1 10^3/uL (0.0-0.2); BASO % 0.7 % (0.0-1.0); EOS # 0.5 10^3/uL (0.0-0.5); EOS % 3.7 % (0.0-3.0); HEMATOCRIT 32.4 % (42.0-52.0); HEMOGLOBIN 10.4 g/dl (13.5-17.5); LYMPH # 2.4 10^3/uL (1.5-5.0); LYMPH % 19.1 % (24.0-44.0); MEAN CORPUSCULAR HEMOGLOBIN 26.3 pg (27.0-33.0); MEAN CORPUSCULAR HGB CONC 32.1 g/dl (32.0-36.5); MEAN CORPUSCULAR VOLUME 81.8 fl (80.0-96.0); MONO # 1.5 10^3/uL (0.0-0.8); MONO % 11.6 % (2.0-8.0); NEUTROPHILS # 8.2 10^3/uL (1.5-8.5); NEUTROPHILS % 64.5 % (36.0-66.0); PLATELET COUNT, AUTOMATED 493 10^3/uL (150-450); RED BLOOD COUNT 3.96 10^6/uL (4.30-6.10); WHITE BLOOD COUNT 12.7 10^3/uL (4.0-10.0)
[2025-03-07 11:43] LABS: ALBUMIN 2.8 G/DL (3.2-5.2); BILIRUBIN,TOTAL 0.4 MG/DL (0.3-1.2); CALCIUM LEVEL 8.9 MG/DL (8.3-10.6); GLOMERULAR FILTRATION RATE 78.5 (>42); POTASSIUM SERUM 4.4 MMOL/L (3.5-5.1); TOTAL PROTEIN 6.4 G/DL (5.7-8.2)
[2025-03-07 11:45] LABS: FREE T3 2.2 PG/ML (2.3-4.2); FREE T4 1.08 NG/DL (0.89-1.76); THYROID STIMULATING HORMONE 4.405 uIU/ML (0.55-4.78)
[2025-03-10 10:51] VITALS: BP 144/68; O2SAT 91
[2025-03-10] MEDS: FERRIC CARBOXYMALTOSE INJ 750 MG, VIAL MATE ADAPTER 1 EACH in NS 100 ML IV SCH (11:53)
[2025-03-10 13:54] VITALS: BP 125/51; O2SAT 91
[~2025-03-18] VITALS: Ht 168.9 cm; Wt 70.2 kg
[2025-03-18 12:30] VITALS: BP 102/62; O2SAT 94
[2025-03-18] MEDS: FERRIC CARBOXYMALTOSE INJ 750 MG, VIAL MATE ADAPTER 1 EACH in NS 100 ML IV SCH (12:42)
[2025-03-18 13:20] VITALS: BP 110/63; O2SAT 93
[2025-03-20] MEDS ORDERED: SENN-186 PO (11:44)
[2025-03-20] MEDS ORDERED: SENN1TAB85 PO (11:44)
[2025-03-20] MEDS ORDERED: HYDR-3713 PO (11:44)
[2025-03-20] MEDS ORDERED: PRES10CA2 PO (11:44)
== END 2025-03-22 | disposition expired ==
LOC: M ONCM 03-22
PROVIDERS: ATTEND Internal Medicine Medical Oncology
DX: Z51.12 Encounter for antineoplastic immunotherapy (principal); C43.71 Malignant melanoma of right lower limb, including hip; C77.2 Secondary and unspecified malignant neoplasm of intra-abdominal lymph nodes; C77.5 Secondary and unspecified malignant neoplasm of intrapelvic lymph nodes; C77.4 Secondary and unspecified malignant neoplasm of inguinal and lower limb lymph nodes; I70.0 Atherosclerosis of aorta; I70.8 Atherosclerosis of other arteries; I77.1 Stricture of artery; J44.9 Chronic obstructive pulmonary disease, unspecified; Z87.891 Personal history of nicotine dependence; Z85.21 Personal history of malignant neoplasm of larynx; Z86.018 Personal history of other benign neoplasm; Z79.899 Other long term (current) drug therapy
CPT/HCPCS: 36415; 80053; 82607; 82728; 82746; 83550; 84100; 84439; 84443; 84481; 85025; 96367; 96413; 96417; G0463; J1439; J9228; J9299